=== PATIENT | female | born 1995 | race Caucasian/White ===

== ENCOUNTER 2016-11-01 15:28 | Emergency (ER) | payer OTHER ==
[~2016-11-01] VITALS: Ht 152.4 cm; Wt 58.3 kg
[~2016-11-01 15:28] MED LIST: ADDERALL XR 3030 MG PO; AMBIEN10 MG PO; BRINTELLIX20 MG PO; CEFDINIR300 MG PO; COGENTIN0.5 MG PO; EFFEXOR XR150 MG PO; FLORASTOR250 MG PO; GABAPENTIN300 MG PO; GABAPENTIN600 MG PO; HYDROMORPHONE HC2 MG PO; INDERAL10 MG PO; KLONOPIN0.5 M1; KLONOPIN2 MG PO; LEXAPRO10 MG PO; LUNESTA3 MG PO; NOHOMEMEDS; PROZAC40 MG PO; Remove Duragesic Pat TD; SEROQUEL XR400 MG PO; TIROSINT25 MCG PO; TOPAMAX100 MG PO; TOPAMAX200 MG PO; ZYPREXA5 MG PO
[2016-11-01 16:34] LABS: HEMATOCRIT 39.6 % (36.0-46.0); MCH 32.2 PG (29.0-34.0); MCHC 34.3 G/DL (30.0-36.0); MCV 93.6 FL (83-99); MEAN PLAT.VOLUME 9.6 uM^3 (9.5-12.4); PLATELET COUNT 327 K/uL (156-360); RBC DIS.WIDTH-CV 11.9 % (11.8-14.6); RBC DIS.WIDTH-SD 41.1 % (39-53); RED BLOOD COUNT 4.23 M/uL (3.80-5.20); WHITE BLOOD COUNT 6.7 K/uL (4.1-10.2)
[2016-11-01 16:42] LABS: CHLORIDE 113 mEq/L (99-109); SODIUM 141 mEq/L (136-147)
[2016-11-01 16:44] LABS: GLUCOSE 74 mg/dL (70-99)
[2016-11-01 16:46] LABS: ANION GAP 11 MEQ/L (2-14); TOTAL BILIRUBIN 0.5 mg/dL (0.0-1.0)
[2016-11-01 16:48] LABS: ALKALINE PHOSPHATASE 42 IU/L (3-129); GFR ESTIMATE (CALCULATED) > 59 mL/min/
[2016-11-01 16:49] LABS: UREA NITROGEN (BUN) 22 mg/dL (9-23)
[2016-11-01 16:53] LABS: ADD MIUA? YES; BILIRUBIN NEGATIVE; BLOOD NEGATIVE; COLOR YELLOW ((YELLOW)); GLUCOSE (STRIP) NEGATIVE; KETONES NEGATIVE; LEUKOCYTES SMALL; NITRITE NEGATIVE; PROTEIN (STRIP) NEGATIVE; SPECIFIC GRAVITY 1.005 (1.000-1.030); UROBILINOGEN 0.2 MG/DL (0.2-1.0)
[2016-11-01 16:59] LABS: QUANTITATIVE HCG < 4.0 MIU/ML
[2016-11-01 17:12] LABS: BACTERIA RARE /HPF; EPITHELIAL CELLS 2+ /HPF; MUCUS TRACE /LPF; RED BLOOD CELLS 0-5 /HPF (0-5); UCUL ADDED? NO; WHITE BLOOD CELLS 0-5 /HPF (0-5)
[2016-11-02 00:27] VITALS: BP 104/64
== END 2016-11-02 00:28 | disposition home or self-care (01) ==
LOC: EME 15:28
DX: K59.00 Constipation, unspecified (principal); R10.9 Unspecified abdominal pain; Z72.0 Tobacco use
CPT/HCPCS: 74177; 76856; 80053; 81003; 84702; 85027; 99281; 99285; J1885; J3010; J7030; J7050

== ENCOUNTER 2016-11-08 12:02 | Emergency (ER) | payer OTHER ==
[~2016-11-08] VITALS: Ht 152.4 cm; Wt 57.4 kg
[2016-11-08 13:41] LABS: HEMATOCRIT 36.7 % (36.0-46.0); MCH 31.6 PG (29.0-34.0); MCHC 33.8 G/DL (30.0-36.0); MCV 93.6 FL (83-99); MEAN PLAT.VOLUME 9.1 uM^3 (9.5-12.4); PLATELET COUNT 310 K/uL (156-360); RBC DIS.WIDTH-CV 11.8 % (11.8-14.6); RBC DIS.WIDTH-SD 40.3 % (39-53); RED BLOOD COUNT 3.92 M/uL (3.80-5.20)
[2016-11-08 13:55] LABS: CHLORIDE 111 mEq/L (99-109); POTASSIUM 3.8 mEq/L (3.7-5.4); SODIUM 141 mEq/L (136-147)
[2016-11-08 13:58] LABS: GLUCOSE 89 mg/dL (70-99)
[2016-11-08 13:59] LABS: ANION GAP 9 MEQ/L (2-14)
[2016-11-08 14:01] LABS: ALKALINE PHOSPHATASE 48 IU/L (3-129); GFR ESTIMATE (CALCULATED) > 59 mL/min/
[2016-11-08 14:02] LABS: UREA NITROGEN (BUN) 14 mg/dL (9-23)
[2016-11-08 14:04] LABS: TOTAL BILIRUBIN 0.3 mg/dL (0.0-1.0)
[2016-11-08 14:10] LABS: QUANTITATIVE HCG < 4.0 MIU/ML
[2016-11-08 15:58] LABS: ADD MIUA? YES; BILIRUBIN NEGATIVE; BLOOD NEGATIVE; COLOR YELLOW ((YELLOW)); GLUCOSE (STRIP) NEGATIVE; KETONES NEGATIVE; LEUKOCYTES NEGATIVE; NITRITE NEGATIVE; PROTEIN (STRIP) NEGATIVE; SPECIFIC GRAVITY 1.005 (1.000-1.030); UROBILINOGEN 0.2 MG/DL (0.2-1.0)
[2016-11-08 16:01] LABS: BACTERIA RARE /HPF; EPITHELIAL CELLS 1+ /HPF; MUCUS TRACE /LPF; RED BLOOD CELLS 0-5 /HPF (0-5); UCUL ADDED? NO; WHITE BLOOD CELLS 0-5 /HPF (0-5)
[2016-11-08] MEDS ORDERED: NORCO 5/3251 TABLET PO (17:50)
[2016-11-08 18:45] VITALS: BP 105/78
[2016-11-09 13:01] LABS: CHLAMYDIA TRACHOMATIS NEGATIVE; NEISSERIA GONORRHOEAE NEGATIVE
== END 2016-11-08 18:46 | disposition home or self-care (01) ==
LOC: EME 12:02
PROVIDERS: Physician Assistant
DX: R10.2 Pelvic and perineal pain (principal); F17.200 Nicotine dependence, unspecified, uncomplicated; Z88.6 Allergy status to analgesic agent
CPT/HCPCS: 80053; 81003; 84702; 85027; 87210; 87491; 87591; 99281; 99284; J1885; J3010